=== PATIENT | female | born 1995 | race Two or more races ===

== ENCOUNTER 2021-01-05 16:14 | Emergency (ER) | payer MEDICAID ==
[~2021-01-05] VITALS: Ht 167.6 cm; Wt 82.0 kg
[2021-01-05 16:16] VITALS: BP 116/44
[2021-01-05] MEDS ORDERED: METOCLOPRAMIDE HCL 10MG/2ML VIAL IV STA (16:39)
[2021-01-05] MEDS ORDERED: ACETAMINOPHEN WITH CODEINE 300/30MG TABLET PO STA (16:39)
[2021-01-05] MEDS ORDERED: SODIUM CHLORIDE 0.9% 1,000 ML IV ONE (16:45)
[2021-01-05 18:56] LABS: HEMATOCRIT. 44.7 % (36.0-48.0); HEMOGLOBIN. 15.2 g/dL (12.0-16.0); MEAN CORPUSCULAR HEMOGLOBIN 31.9 pg (28.0-32.0); MEAN CORPUSCULAR VOLUME 93.9 fL (81.0-99.0); MEAN PLATELET VOLUME 10.3 fl (7.4-10.4); PLATELET 188 x1000/uL (130-400); RED BLOOD CELL COUNT 4.76 mill/uL (4.2-5.4); RED CELL DISTRIBUTION WIDTH 12.2 % (11.6-14.6)
[2021-01-05 18:59] LABS: CHLORIDE 111 mEq/L (98-107)
[2021-01-05 19:03] LABS: ETHANOL BLOOD < 10 mg/dL
[2021-01-05 19:14] LABS: HCG SCREEN NEGATIVE
[2021-01-05 19:23] LABS: PROTHROMBIN TIME 10.6 sec (9.6-11.0)
[2021-01-05 22:08] LABS: PLATELET ESTIMATE NORMAL
== END 2021-01-05 21:54 | disposition left against medical advice (07) ==
LOC: ER 16:14
DX: Z53.21 Procedure and treatment not carried out due to patient leaving prior to being seen by health care provider (principal); R10.30 Lower abdominal pain, unspecified; H93.11 Tinnitus, right ear
CPT/HCPCS: 36415; 80053; 80320; 83690; 84703; 85025; 85610; J7030; G0480